=== PATIENT | female | born 1970 | race Caucasian/White ===

== ENCOUNTER 2017-07-07 14:51 | Emergency (ER) | payer OTHER, BC ==
[2017-07-07 15:21] VITALS: BMI 27.2
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
[2017-07-07 16:25] LABS: BASO % 1.4 % (0-2.0); EOS % 6.2 % (0-4.5); HEMOGLOBIN 13.1 GM/dL (10.7-15.3); LYMPH % 37.5 % (8-40); MCH 26.4 pg (25.7-33.7); MCHC 32.8 g/dl (32.0-36.0); MEAN CELL VOLUME 80.3 fl (80-96); MEAN PLT VOLUME 8.8 fl (7.5-11.1); MONO % 6.3 % (3.8-10.2); NEUT % 48.6 % (42.8-82.8); PLATELET COUNT 394 K/MM3 (134-434); RBC 4.99 M/mm3 (3.60-5.2); RDW 15.7 % (11.6-15.6); WHITE BLOOD COUNT 9.8 K/mm3 (4.0-10.0)
[2017-07-07 17:12] LABS: ALBUMIN 3.8 g/dl (3.4-5.0); ANION GAP 11 (8-16); BLOOD UREA NITROGEN 15 mg/dL (7-18); CALCIUM 9.2 mg/dL (8.5-10.1); CHLORIDE 103 mmol/L (98-107); CO2 27 mmol/L (21-32); GLUCOSE,RANDOM 104 mg/dL (74-106); POTASSIUM 4.2 mmol/L (3.5-5.1); SODIUM 141 mmol/L (136-145)
[2017-07-07 17:15] LABS: ALK PHOS 67 U/L (45-117); BILIRUBIN,TOTAL 0.3 mg/dL (0.2-1.0); CREATININE 0.8 mg/dL (0.55-1.02); SGOT/AST 25 U/L (15-37); SGPT/ALT 32 U/L (12-78); TOT PROT 7.6 g/dl (6.4-8.2)
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
[2017-07-07] MEDS ORDERED: CYCLOBENZAPRINE HCL 10 MG TABLET (FP) ONE (18:45)
[2017-07-07] MEDS ORDERED: CYCLOBENZAPRINE HCL 10 MG TABLET (FP) PO ONE (18:49)
[2017-07-07] MEDS ORDERED: IBUPROFEN 600 MG TABLET (FP) PO ONE ×2 (18:49→20:28)
[2017-07-07] MEDS ORDERED: ACETAMINOPHEN 325 MG TABLET (FP) PO ONE (18:52)
[2017-07-07] MEDS ORDERED: ACETAMINOPHEN 325 MG TABLET (FP) ONE (18:56)
[2017-07-07 18:57] LABS: URINE APPEARANCE CLOUDY; URINE BILIRUBIN NEGATIVE (NEGATIVE); URINE BLOOD NEGATIVE (NEGATIVE); URINE COLOR YELLOW; URINE GLUCOSE (UA) NEGATIVE (NEGATIVE); URINE KETONE NEGATIVE (NEGATIVE); URINE NITRITE NEGATIVE (NEGATIVE); URINE PROTEIN NEGATIVE (NEGATIVE); URINE UROBILINOGEN NEGATIVE mg/dL (0.2-1.0)
[2017-07-07 19:07] LABS: URINE LEUK ESTERASE 2+ (NEGATIVE)
[2017-07-07 19:09] VITALS: BP 134/84; PULSE 68; TEMP 98.3
[2017-07-07 19:09] LABS: EPI CELLS FEW /HPF (FEW); URINE BACTERIA FEW /hpf (NONE SEEN); URINE MUCUS RARE
[2017-07-07] MEDS ORDERED: CEPHALEXIN MONOHYDRATE 500 MG CAPSULE (UD) PO ONE (21:16)
[2017-07-07] MEDS ORDERED: CEPHALEXIN MONOHYDRATE 250 MG CAPSULE (FP) ONE (21:30)
== END 2017-07-07 21:35 | disposition home or self-care (01) ==
LOC: SUPCPDRO 14:51 → JER 14:51
DX: N39.0 Urinary tract infection, site not specified (principal); R50.9 Fever, unspecified; M54.6 Pain in thoracic spine
CPT/HCPCS: 36415; 71046-TC; 72146-TC; 80053; 81003; 81015; 83605; 84703; 85025; 87040; 87804; 99283-25

== ENCOUNTER 2018-04-30 21:02 | Emergency (ER) | payer BC, OTHER ==
--- NOTE | 2018-04-30 21:17 | PDOC ---
History of Present Illness - General History Source: Patient Exam Limitations: No Limitations <La Cook - Last Filed: 04/30/18 21:58> <Celina Montes - Last Filed: 05/01/18 04:46> - General Chief Complaint: Pain, Acute Stated Complaint: CHEST PAIN Time Seen by Provider: 04/30/18 21:07 - History of Present Illness Initial Comments: 04/30/18 21:58 The patient is a 48 year old female, with no significant PMH who presents to the emergency department with left sided chest pressure since this afternoon. Patient states she also felt an irregular heartbeat, associated nausea, and noticed the chest pressure radiating to the left shoulder. Patient took an advil and baby aspirin with minimal relief of this chest pressure. Patient reports a cough last week but denies similar symptoms in the past. Patient denies eating anything unusual today or any heavy lifting. Patient denies sick contact or recent travel. No history of blood clots. No family history of cardiac issues. The patient denies diaphoresis, shortness of breath, headache and dizziness. Denies fever, chills, vomit, diarrhea and constipation. Denies dysuria, frequency, urgency and hematuria. Allergies: NKA Past surgical history: None reported. Social history: No reported alcohol, drug or cigarette use. PCP: Dr. Patrick (La Cook) Past History <La Cook - Last Filed: 04/30/18 21:58> - Past Medical History COPD: No - Immunization History Td Vaccination: No TDAP Vaccination: No Immunization Up to Date: No - Suicide/Smoking/Psychosocial Hx Smoking Status: No Smoking History: Never smoked Have you smoked in the past 12 months: No Number of Cigarettes Smoked Daily: 0 Information on smoking cessation initiated: No Hx Alcohol Use: No Drug/Substance Use Hx: No Substance Use Type: Alcohol <Celina Montes - Last Filed: 05/01/18 04:46> - Past Medical History Allergies/Adverse Reactions: Allergies Allergy/AdvReac Type Severity Reaction Status Date / Time No Known Allergies Allergy Verified 04/30/18 21:07 Home Medications: Ambulatory Orders NK [No Known Home Medication] 04/30/18 Review of Systems - Review of Systems Able to Perform ROS?: Yes <La Cook - Last Filed: 04/30/18 21:58> <Celina Montes - Last Filed: 05/01/18 04:46> - Review of Systems Comments:: 04/30/18 21:53 ADULT ROS GENERAL/CONSTITUTIONAL: No fever or chills. No weakness. HEAD, EYES, EARS, NOSE AND THROAT: No change in vision. No ear pain or discharge. No sore throat. CARDIOVASCULAR: (+)Chest pain. No shortness of breath. RESPIRATORY: No cough, wheezing, or hemoptysis. GASTROINTESTINAL: No nausea, vomiting, diarrhea or constipation. GENITOURINARY: No dysuria, frequency, or change in urination. MUSCULOSKELETAL: No joint or muscle swelling or pain. No neck or back pain. SKIN: No rash NEUROLOGIC: No headache, vertigo, loss of consciousness, or change in strength/ sensation. ENDOCRINE: No increased thirst. No abnormal weight change. HEMATOLOGIC/LYMPHATIC: No anemia, easy bleeding, or history of blood clots. ALLERGIC/IMMUNOLOGIC: No hives or skin allergy. (La Cook) *Physical Exam <La Cook - Last Filed: 04/30/18 21:58> <Celina Montes - Last Filed: 05/01/18 04:46> - Vital Signs Last Vital Signs Temp Pulse Resp BP Pulse Ox 98.5 F 86 17 137/84 100 04/30/18 21:09 04/30/18 21:09 04/30/18 21:09 04/30/18 21:09 04/30/18 21:09 - Physical Exam Comments: 04/30/18 21:52 ADULT EXAM GENERAL: Awake, alert, and fully oriented, in no acute distress HEAD: No signs of trauma EYES: PERRLA, EOMI, sclera anicteric, conjunctiva clear ENT: Auricles normal inspection, hearing grossly normal, nares patent, Moist mucosa. (+) Bilateral, prominent 1+ tonsils without erythema or exudates. NECK: Normal ROM, supple, no lymphadenopathy, JVD, or masses LUNGS: Breath sounds equal, clear to auscultation bilaterally. No wheezes, and no crackles HEART: Regular rate and rhythm, normal S1 and S2, no murmurs, rubs or gallops. ( +) Left anterior chest wall tenderness to palpation without crepitus. (+) 4th and 5th rib tenderness just lateral to the sternum. ABDOMEN: Soft, nontender, normoactive bowel sounds. No guarding, no rebound. No masses EXTREMITIES: Normal range of motion, no edema. No clubbing or cyanosis. No cords, erythema, or tenderness NEUROLOGICAL: Cranial nerves II through XII grossly intact. Normal speech, normal gait SKIN: Warm, Dry, normal turgor, no rashes or lesions noted. (La Cook) Heart Score/ECG Review <La Cook - Last Filed: 04/30/18 21:58> - History History: Slightly suspicious - Electrocardiogram EKG: Normal - Age Age: 45-65 - Risk Factors Based on the list above the patient has:: No risk factors known - Troponin Troponin: </= normal limit - Score Heart Score - Total: 1 - ECG Intrepretation Rhythm: PVC(s) <Celina Montes - Last Filed: 05/01/18 04:46> - ECG Intrepretation Comment:: occasional unifocal PVCs on monitor (Celina Montes) ED Treatment Course - LABORATORY CBC & Chemistry Diagram: 04/30/18 21:25 04/30/18 21:25 <La Cook - Last Filed: 04/30/18 21:58> - LABORATORY CBC & Chemistry Diagram: 04/30/18 21:25 04/30/18 21:25 <Celina Montes - Last Filed: 05/01/18 04:46> - ADDITIONAL ORDERS Additional order review: Laboratory Results 04/30/18 04/30/18 21:25 21:25 Sodium 138 Potassium 3.3 L Chloride 106 Carbon Dioxide 27 Anion Gap 5 L BUN 9 Creatinine 0.9 Creat Clearance w eGFR > 60 Random Glucose 132 H D Calcium 9.1 Total Bilirubin 0.4 AST 23 D ALT 19 Alkaline Phosphatase 55 Creatine Kinase 126 Troponin I < 0.03 Total Protein 7.0 Albumin 3.9 04/30/18 21:25 RBC 4.58 MCV 84.8 MCHC 33.1 RDW 13.7 D MPV 8.7 Neutrophils % 48.1 Lymphocytes % 35.9 Monocytes % 8.0 Eosinophils % 7.5 H Basophils % 0.5 - RADIOLOGY Radiology Studies Ordered: Category Date Time Status CHEST PA & LAT [RAD] Stat Radiology 04/30/18 22:11 Taken - Medications Given in the ED: ED Medications Discontinued Medications Generic Name Dose Route Start Last Admin Trade Name William PRN Reason Stop Dose Admin Potassium Chloride 40 meq 04/30/18 23:14 04/30/18 23:22 K-Dur - PO 04/30/18 23:15 40 meq ONCE ONE Administration Medical Decision Making <La Cook - Last Filed: 04/30/18 21:58> <Celina Montes - Last Filed: 05/01/18 04:46> - Medical Decision Making Documentation has been prepared under my direction and personally reviewed by me in its entirety. I attest that this documented accurately reflects all work, treatment, procedures and medical decision making performed by me. As noted above, this 48-year-old woman, with no cardiac risk factors presents with left anterior chest pressure for the last several hours. Onset was when patient was watching sports that her son was engaged in. Patient denies associated shortness of breath or other symptoms other than mild nausea. Of note, area of pressure is tender to palpation. Patient denies overuse or trauma to the area. Exam as noted. Although not seen on 12-lead electrocardiogram, patient has occasional unifocal PVCs on monitor. Patient states that she feels these abnormal beats every "3-4 minutes". She states that she normally does not have the sensation of extra beats. CBC/chemistry profile/cardiac enzymes sent for analysis. Chest x-ray (PA and lateral) performed. Chest x-ray preliminary interpretation by Imaging telephone clerk: Bilateral platelike atelectasis at bases but otherwise no infiltrates or effusion. Cardiac silhouette is normal. Laboratory values notable for potassium level of 3.3; otherwise, no significant abnormalities except for random glucose of 132. Troponin is less than 0.3. Patient will be discharged with diagnosis of atypical chest pain; she should return to emergency room immediately if she has any worsening of pain or shortness of breath/diaphoresis/prolonged nausea. She states that she will follow up with her PMD, Dr. Patrick, within the next few days. (Celina Montes) *DC/Admit/Observation/Transfer <La Cook - Last Filed: 04/30/18 21:58> <Celina Montes - Last Filed: 05/01/18 04:46> Diagnosis at time of Disposition: Atypical chest pain - Discharge Dispostion Disposition: HOME Condition at time of disposition: Stable - Referrals Referrals: Frederick Patrick MD [Primary Care Provider] - 3 days - Patient Instructions Printed Discharge Instructions: DI for Atypical Chest Pain Additional Instructions: Rest; avoid strenuous activity for the next several days Ibuprofen/naproxen/acetaminophen as needed for pain Eat potassium rich diet as discussed Return to ER if you havr severe pain/shortness of breath/cough or fever Follow-up with Dr Patrick within the next 3-4 days - Post Discharge Activity
[2018-04-30 21:19] VITALS: BP 137/84; PULSE 86; TEMP 98.5; BMI 27.2
[2018-04-30 21:42] LABS: BASO % 0.5 % (0-2.0); EOS % 7.5 % (0-4.5); HEMATOCRIT 38.8 % (32.4-45.2); HEMOGLOBIN 12.9 GM/dl (10.7-15.3); LYMPH % 35.9 % (8-40); MCH 28.1 pg (25.7-33.7); MCHC 33.1 g/dl (32.0-36.0); MEAN CELL VOLUME 84.8 fl (80-96); MEAN PLT VOLUME 8.7 fl (7.5-11.1); NEUT % 48.1 % (42.8-82.8); PLATELET COUNT 324 K/MM3 (134-434); RBC 4.58 M/mm3 (3.60-5.2); RDW 13.7 % (11.6-15.6); WHITE BLOOD COUNT 9.1 K/mm3 (4.0-10.8)
[2018-04-30 22:10] LABS: ALBUMIN 3.9 g/dl (3.5-5.0); ALK PHOS 55 U/L (32-92); ANION GAP 5 MMOL/L (8-16); BILIRUBIN,TOTAL 0.4 mg/dl (0.2-1.0); BLOOD UREA NITROGEN 9 mg/dl (7-18); CALCIUM 9.1 mg/dl (8.4-10.2); CHLORIDE 106 mmol/L (98-107); CO2 27 mmol/L (22-28); CREATININE 0.9 mg/dl (0.6-1.3); GLUCOSE,RANDOM 132 mg/dl (74-106); POTASSIUM 3.3 mmol/L (3.5-5.1); SGOT/AST 23 U/L (10-42); SGPT/ALT 19 U/L (10-40); SODIUM 138 mmol/L (136-145)
[2018-04-30] MEDS ORDERED: POTASSIUM CHLORIDE TABS 20 MEQ TABLET.ER (FP) PO ONE ×2 (23:14→23:19)
--- NOTE | 2018-05-01 12:40 | EKG ---
Test Reason : Blood Pressure : / mmHG Vent. Rate : 085 BPM Atrial Rate : 085 BPM P-R Int : 144 ms QRS Dur : 092 ms QT Int : 404 ms P-R-T Axes : 064 046 057 degrees QTc Int : 480 ms NORMAL SINUS RHYTHM NONSPECIFIC ST AND T WAVE ABNORMALITY ABNORMAL ECG NO PREVIOUS ECGS AVAILABLE Confirmed by Alejandro Stephenson ([id number]) on 05/01/2018 12:39:57 PM Referred By: NASEEM Confirmed By:Alejandro Stephenson
== END 2018-04-30 23:27 | disposition home or self-care (01) ==
LOC: FER 21:02
DX: R07.89 Other chest pain (principal)
CPT/HCPCS: 36415; 71046-TC-FY; 80053; 82550; 84484; 85025; 87070; 93005; 99281-25

== ENCOUNTER 2018-08-22 09:09 | Inpatient (IN) | payer BC ==
--- NOTE | 2018-08-22 09:37 | PDOC ---
History of Present Illness - General Chief Complaint: Pain Stated Complaint: ABD PAIN Time Seen by Provider: 08/22/18 09:37 - History of Present Illness Initial Comments: 08/22/18 09:46 Ms. Solares is a 48 yo female w/ no significant pmh who presents for evaluation of several day history of RUQ abdominal pain. Patient reports she had similar symptoms approximately 1 week ago which included diarrhea and fever however had improved; presents today as pain returned. Patient reports she has only had coffee this morning for breakfast. Last BM was this morning and normal. The patient denies chest pain, shortness of breath, headache and dizziness. Denies chills, nausea, vomit, and constipation. Denies dysuria, frequency, urgency and hematuria. Past History - Past Medical History Allergies/Adverse Reactions: Allergies Allergy/AdvReac Type Severity Reaction Status Date / Time No Known Allergies Allergy Verified 04/30/18 21:07 Home Medications: Ambulatory Orders NK [No Known Home Medication] 04/30/18 COPD: No - Immunization History Td Vaccination: No TDAP Vaccination: No Immunization Up to Date: No - Suicide/Smoking/Psychosocial Hx Smoking Status: No Smoking History: Never smoked Have you smoked in the past 12 months: No Number of Cigarettes Smoked Daily: 0 Information on smoking cessation initiated: No Hx Alcohol Use: No Drug/Substance Use Hx: No Substance Use Type: Alcohol Review of Systems - Review of Systems Comments:: 08/22/18 11:17 GENERAL/CONSTITUTIONAL: +Fever as described. No chills. No weakness. HEAD, EYES, EARS, NOSE AND THROAT: No change in vision. No ear pain or discharge. No sore throat. CARDIOVASCULAR: No chest pain or shortness of breath RESPIRATORY: No cough, wheezing, or hemoptysis. GASTROINTESTINAL: +Diarrhea (now resolved). RUQ abdominal pain as described. No nausea, vomiting, or constipation. GENITOURINARY: No dysuria, frequency, or change in urination. MUSCULOSKELETAL: No joint or muscle swelling or pain. No neck or back pain. SKIN: No rash NEUROLOGIC: No headache, vertigo, loss of consciousness, or change in strength/ sensation. ENDOCRINE: No increased thirst. No abnormal weight change HEMATOLOGIC/LYMPHATIC: No anemia, easy bleeding, or history of blood clots. ALLERGIC/IMMUNOLOGIC: No hives or skin allergy. *Physical Exam - Vital Signs Last Vital Signs Temp Pulse Resp BP Pulse Ox 98.3 F 86 18 132/78 98 08/22/18 09:17 08/22/18 09:17 08/22/18 09:17 08/22/18 09:17 08/22/18 09:17 - Physical Exam Comments: 08/22/18 11:18 GENERAL: Awake, alert, and fully oriented, in no acute distress HEAD: No signs of trauma, normocephalic, atraumatic EYES: PERRLA, EOMI, sclera anicteric, conjunctiva clear ENT: Auricles normal inspection, hearing grossly normal, nares patent, oropharynx clear without exudates. Moist mucosa NECK: Normal ROM, supple, no lymphadenopathy, JVD, or masses LUNGS: No distress, speaks full sentences, clear to auscultation bilaterally HEART: Regular rate and rhythm, normal S1 and S2, no murmurs, rubs or gallops, peripheral pulses normal and equal bilaterally. ABDOMEN: +RUQ TTP. Otherwise soft, nontender, normoactive bowel sounds. No guarding, no rebound. No masses EXTREMITIES: Normal inspection, Normal range of motion, no edema. No clubbing or cyanosis. NEUROLOGICAL: Cranial nerves II through XII grossly intact. Normal speech, normal gait, no focal sensorimotor deficits SKIN: Warm, Dry, normal turgor, no rashes or lesions noted. Moderate Sedation - Procedure Monitoring Vital Signs: Procedure Monitoring Vital Signs Temperature 98.3 F 08/22/18 09:17 Pulse Rate 86 08/22/18 09:17 Respiratory Rate 18 08/22/18 09:17 Blood Pressure 132/78 08/22/18 09:17 O2 Sat by Pulse Oximetry (%) 98 08/22/18 09:17 ED Treatment Course - LABORATORY CBC & Chemistry Diagram: 08/22/18 10:20 08/22/18 10:20 Medical Decision Making - Medical Decision Making 08/22/18 11:18 Ms. Solares is a 48 yo female w/ pmh as described who presents for evaluation of symptoms concerning for gastritis vs. cholecystitis. Patient evaluated with labs and bedside US and found to have signs concerning for cholecystitis with thickened GB wall as well as mary-cholecystic fluid and stones appreciated. Labs sent as below. Rocephin and flagyl started for antibiosis. Surgery paged for evaluation. 08/22/18 12:[address] Rosales who recommended adding cefoxitin 2g; given patient's previous ceftriaxone administration decision made by ER attending to defer at this time. Surgery will evaluate for further care. Patient's PCP paged for admission. *DC/Admit/Observation/Transfer Diagnosis at time of Disposition: Cholecystitis - Discharge Dispostion Decision to Admit order: Yes - Referrals - Patient Instructions - Post Discharge Activity
[2018-08-22] MEDS ORDERED: morphine CARPU-JECT 4 MG/1 ML DISP.SYRIN IVPUSH ONE (09:49)
[2018-08-22] MEDS ORDERED: ONDANSETRON 4 MG/2 ML VIAL IVPUSH ONE (09:50)
[2018-08-22] MEDS ORDERED: SODIUM CHLORIDE 1,000 ML IV STA (09:50)
[2018-08-22] MEDS ORDERED: ONDANSETRON 4 MG/2 ML VIAL ONE (10:01)
[2018-08-22] MEDS ORDERED: morphine SULFATE 4 MG/ML VIAL ONE (10:01)
--- NOTE | 2018-08-22 10:24 | PDOC ---
Attending Attestation - Resident Resident Name: Riky Rosales - ED Attending Attestation I have performed the following: I have examined & evaluated the patient, The case was reviewed & discussed with the resident, I agree w/resident's findings & plan - HPI HPI: 08/22/18 10:44 Ms. Solares is a 48 yo female w/ no significant pmh who presents for evaluation of RUQ AP x 1 day, beginning and worsening since yesterday.. Patient reports she had similar symptoms of AP, n/v/d, fever approximately 1 week ago when she traveled to [facility]. Patient reports she has only had coffee this morning for breakfast. Last BM was this morning and normal. - Physicial Exam PE: 08/22/18 10:43 NAD, well appearing, PERRL, EOMI, MMM, nl conjunctiva, anicteric; neck supple. lungs clear, RRR, abdomen soft +Tovar's sign, +RUQ tenderness. GRIFFIN x4, no focal neuro deficits. No peripheral edema. normal color for ethnicity, WWP. - Medical Decision Making 08/22/18 10:39 See HPI for details Vital signs reviewed, wnl. no fever. Prior notes reviewed, including admissions, discharges and consultations. laboratory results and imaging reviewed, basic labs and lytes wnl, notable for mild leukocytosis of 12.6K - consistent with early infection/inflammation of biliary etiology, normal LFTs/lipase. normal lytes and chem panel. ED course: bedside sono for biliary exam with +cholelithiasis with acute cholecystitis IVF, ceftriaxone/flagyl appropriate as coverage of gram negs and positives and early abdominal infection, analgesia. NPO. official RUQ sono ordered and pending. - confirmed findings of POCUS biliary exam at bedside supervised by me. surgery cs with Tylor gross, to be seen by Dr Rosales Admit for surgical management. admit to Dr Patrick service. 08/22/18 13:52 Procedures - Bedside Ultrasound Bedside Ultrasound: Gallbladder Remarks: 08/22/18 10:40 POCUS biliary exam: Indication: abdominal pain Views: gallbladder long and s hort axis, CBD Findings: large stone at GB neck with +sonographic Tovar's, +GB wall thickening 5-6mm, +small pericholecystic fluid. normal CBD <3mm for age. Impression: +Cholelithiasis with acute cholecystitis.
[2018-08-22] MEDS ORDERED: CEFTRIAXONE 1,000 MG in DEXTROSE 5%-WATER - 50 ML IVPB ONE (10:38)
[2018-08-22 10:41] LABS: BASO % 0.9 % (0-2.0); EOS % 3.1 % (0-4.5); HEMATOCRIT 38.2 % (32.4-45.2); LYMPH % 25.2 % (8-40); MCH 28.2 pg (25.7-33.7); MCHC 33.9 g/dl (32.0-36.0); MEAN CELL VOLUME 83.2 fl (80-96); MEAN PLT VOLUME 8.3 fl (7.5-11.1); MONO % 9.5 % (3.8-10.2); NEUT % 61.3 % (42.8-82.8); PLATELET COUNT 382 K/MM3 (134-434); RBC 4.59 M/mm3 (3.60-5.2); RDW 13.9 % (11.6-15.6); WHITE BLOOD COUNT 12.6 K/mm3 (4.0-10.0)
[2018-08-22 11:19] LABS: ALBUMIN 3.8 g/dl (3.4-5.0); ALK PHOS 73 U/L (45-117); ANION GAP 7 MMOL/L (8-16); BILIRUBIN,TOTAL 0.4 mg/dL (0.2-1); BLOOD UREA NITROGEN 11 mg/dL (7-18); CALCIUM 9.3 mg/dL (8.5-10.1); CHLORIDE 108 mmol/L (98-107); CO2 24 mmol/L (21-32); CREATININE 0.8 mg/dL (0.55-1.3); GLUCOSE,RANDOM 92 mg/dL (74-106); POTASSIUM 4.1 mmol/L (3.5-5.1); SGOT/AST 11 U/L (15-37); SGPT/ALT 30 U/L (13-61); SODIUM 139 mmol/L (136-145); TOT PROT 7.3 g/dl (6.4-8.2)
--- NOTE | 2018-08-22 11:19 | EKG ---
Test Reason : Blood Pressure : / mmHG Vent. Rate : 072 BPM Atrial Rate : 072 BPM P-R Int : 146 ms QRS Dur : 088 ms QT Int : 404 ms P-R-T Axes : -08 027 019 degrees QTc Int : 442 ms NORMAL SINUS RHYTHM NORMAL ECG WHEN COMPARED WITH ECG OF 30-APR-2018 21:10, T WAVE VARIATION Confirmed by DINORA MARAI MD ([id number]) on 08/22/2018 11:19:46 AM Referred By: Confirmed By:DINORA MARIA MD
[2018-08-22 11:50] LABS: LIPASE 248 U/L (73-393)
[2018-08-22 12:12] LABS: INR 0.99 (0.83-1.09); PROTHROMBIN TIME (PATIENT) 11.7 SEC (9.7-13.0)
[2018-08-22 12:15] LABS: ACTIVATED PTT 31.7 SECONDS (25.2-36.5)
[2018-08-22] MEDS ORDERED: CEFOXITIN SODIUM 2 GM in DEXTROSE 5%-WATER - 100 ML IVPB ONE (12:27)
[2018-08-22] MEDS ORDERED: CEFOXITIN SODIUM IVPB ONE (12:38)
[2018-08-22] MEDS ORDERED: WATER IVPB ONE (12:38)
[2018-08-22] MEDS ORDERED: DEXTROSE 5% IVPB ONE (12:38)
[2018-08-22] MEDS ORDERED: SODIUM CHLORIDE 1,000 ML IV SCH (13:00)
[2018-08-22] MEDS ORDERED: ACETAMINOPHEN INJECTION 100 ML IVPB ONE (14:36)
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
[2018-08-22] MEDS: ACETAMINOPHEN 1000 MG/100 ML VIAL (NON FORMULARY) IVPB PRN (14:41)
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
[2018-08-22] MEDS ORDERED: morphine SULFATE 4 MG/ML VIAL IVPUSH PRN ×2 (14:57→15:05)
[2018-08-22] MEDS ORDERED: ONDANSETRON 4 MG/2 ML VIAL IVPUSH PRN (14:58)
[2018-08-22] MEDS: SODIUM CHLORIDE 1,000 ML IV SCH (15:53)
--- NOTE | 2018-08-22 17:53 | PN ---
Progress Note (short form) - Note Progress Note: ID consult dictated imp/reccd 48 yo female admitted with severe RUQ pain radiating to her back, no fevers no nausea or vomiting this is the first time this has happened +FHX- mother and sister with gallstones US with large stone at neck of GB and thickened GB wall c/w cholycystitis cholycystitis- for surgery in am continue cefoxitin received ceftriaxone and flagyl in ER d/w Dr Rosales further management of antibiotics to be based on operative findings in am Problem List - Problems (1) Calculus of gallbladder with acute cholecystitis without obstruction Code(s): K80.00 - CALCULUS OF GALLBLADDER W ACUTE CHOLECYST W/O OBSTRUCTION
[2018-08-22 18:11] VITALS: BMI 28.1
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
[2018-08-22] MEDS: CEFOXITIN SODIUM/DEXTROSE,ISO 2 GM/50 ML BAG IVPB SCH (21:43)
[2018-08-23] MEDS: SODIUM CHLORIDE 1,000 ML IV SCH (02:00)
[2018-08-23] MEDS ORDERED: PT OWN MED DRAWER 7, Y5N ONE ×2 (05:20→22:04)
[2018-08-23] MEDS: ACETAMINOPHEN 1000 MG/100 ML VIAL (NON FORMULARY) IVPB PRN ×2 (05:22→12:30)
[2018-08-23] MEDS: CEFOXITIN SODIUM/DEXTROSE,ISO 2 GM/50 ML BAG IVPB SCH ×3 (06:37→22:07)
[2018-08-23 08:03] LABS: HEMATOCRIT 37.1 % (32.4-45.2); HEMOGLOBIN 12.6 GM/dL (10.7-15.3); MCH 28.4 pg (25.7-33.7); MCHC 34.1 g/dl (32.0-36.0); MEAN CELL VOLUME 83.3 fl (80-96); MEAN PLT VOLUME 8.5 fl (7.5-11.1); PLATELET COUNT 389 K/MM3 (134-434); RBC 4.45 M/mm3 (3.60-5.2); RDW 13.7 % (11.6-15.6); WHITE BLOOD COUNT 7.5 K/mm3 (4.0-10.0)
[2018-08-23 08:14] LABS: INR 1.05 (0.83-1.09); PROTHROMBIN TIME (PATIENT) 12.4 SEC (9.7-13.0)
[2018-08-23 08:43] LABS: ALBUMIN 3.5 g/dl (3.4-5.0); ALK PHOS 192 U/L (45-117); ANION GAP 5 MMOL/L (8-16); BILIRUBIN,TOTAL 0.8 mg/dL (0.2-1); BLOOD UREA NITROGEN 7 mg/dL (7-18); CALCIUM 8.4 mg/dL (8.5-10.1); CHLORIDE 106 mmol/L (98-107); CO2 27 mmol/L (21-32); CREATININE 0.8 mg/dL (0.55-1.3); GLUCOSE,RANDOM 92 mg/dL (74-106); LIPASE 167 U/L (73-393); MAGNESIUM 2.1 mg/dL (1.8-2.4); PHOSPHOROUS 3.4 mg/dL (2.5-4.9); POTASSIUM 4.4 mmol/L (3.5-5.1); SGOT/AST 461 U/L (15-37); SGPT/ALT 566 U/L (13-61); SODIUM 138 mmol/L (136-145); TOT PROT 7.1 g/dl (6.4-8.2)
[2018-08-23] MEDS ORDERED: MIDAZOLAM HCL 2 MG/2 ML SINGLE DOSE VIAL ONE ×2 (09:48)
[2018-08-23] MEDS ORDERED: PROPOFOL 20 ML ONE (09:49)
[2018-08-23] MEDS ORDERED: fentaNYL CITRATE 250 MCG/5 ML VIAL ONE (09:49)
[2018-08-23] MEDS ORDERED: ROCURONIUM BROMIDE 50 MG/5 ML VIAL ONE (09:49)
[2018-08-23] MEDS ORDERED: ONDANSETRON 4 MG/2 ML VIAL IVPUSH PRN ×2 (09:59→12:41)
[2018-08-23] MEDS ORDERED: LACTATED RINGERS SOLUTION 1,000 ML IV SCH ×3 (10:00→12:41)
[2018-08-23] MEDS ORDERED: BUPIVACAINE HCL/PF 0.5% (5MG/ML) 10 ML VIAL ONE (10:04)
[2018-08-23] MEDS ORDERED: BUPIVACAINE HCL/PF 0.5% (5MG/ML) 10 ML VIAL IJ ONE (11:43)
[2018-08-23] MEDS ORDERED: NEOSTIGMINE METHYLSULFATE 0.5 MG/ML - 10 ML MDV ONE ×2 (11:52)
[2018-08-23] MEDS ORDERED: ACETAMINOPHEN INJECTION 100 ML IVPB ONE (12:25)
[2018-08-23] MEDS ORDERED: ACETAMINOPHEN 1000 MG/100 ML VIAL (NON FORMULARY) IVPB ONE ×2 (12:25→12:41)
--- NOTE | 2018-08-23 12:25 | OP ---
Operative Note - Note: Operative Date: 08/23/18 Pre-Operative Diagnosis: acute cholecystitis w/impacted stone, umbilical hernia Operation: laparoscopic cholecystectomy with primary umbilical hernia repair Findings: <1cm umbilical defect with preperitoneal fat only (closed at end of procedure); tense, distended, edematous gallbladder, decompressed of 60ml hydrops, large stone in infundibulum; mildly dilated cystic duct and artery identified, Weck clips used Post-Operative Diagnosis: Same as Pre-op Surgeon: Constantin Rosales Speedometer Mechanic: Sina Chao (with Karsten Argueta, MS3) Anesthesiologist/ASSOCIATE LOAN OFFICER: Felicity Rdz MD Anesthesia: General, Local (20ml 0.5% marcaine) Specimens Removed: gallbladder to pathology Estimated Blood Loss (mls): 10 Fluid Volume Replaced (mls): 1,000 (crystalloid) Operative Report Dictated: Yes
[2018-08-23] MEDS ORDERED: CEFOXITIN SODIUM 2 GM in DEXTROSE 5%-WATER 100 ML IVPB SCH (14:00)
[2018-08-23] MEDS ORDERED: IBUPROFEN 600 MG TABLET (FP) PO SCH (15:00)
[2018-08-23] MEDS: IBUPROFEN 600 MG TABLET (FP) PO SCH ×2 (15:49→22:06)
--- NOTE | 2018-08-23 16:49 | PN ---
Progress Note, Physician Chief Complaint: Acute Cholecystitis S/P cholecystectomy History of Present Illness: Previous notes and events reviewed awake and alert NAD states pain is controlled s/p lap cholecystectomy POC #0 - Current Medication List Current Medications: Active Medications Acetaminophen (Tylenol -) 650 mg PO Q6H [facility] Lactated Ringer's (Lactated Ringers Solution) 1,000 mls @ 100 mls/hr IV ASDIR SEAN Cefoxitin Sodium (Mefoxin Premix (Restricted To Id)) 2 gm in 50 mls @ 100 mls/ hr IVPB Q8H SEAN; Protocol Last Admin: 08/23/18 14:40 Dose: Not Given Ibuprofen (Motrin -) 600 mg PO Q6H SEAN Last Admin: 08/23/18 15:49 Dose: 600 mg Ondansetron HCl (Zofran Injection) 4 mg IVPUSH Q6H PRN PRN Reason: NAUSEA AND/OR VOMITING - Objective Vital Signs: Vital Signs Temperature 99.1 F 08/23/18 13:49 Pulse Rate 63 08/23/18 13:49 Respiratory Rate 18 08/23/18 13:49 Blood Pressure 117/71 08/23/18 13:49 O2 Sat by Pulse Oximetry (%) 98 08/23/18 13:49 Constitutional: Yes: No Distress, Calm Eyes: Yes: Conjunctiva Clear HENT: Yes: Atraumatic Cardiovascular: Yes: Regular Rate and Rhythm Respiratory: Yes: Regular, CTA Bilaterally Gastrointestinal: Yes: Normal Bowel Sounds, Soft, Tenderness (epigastric, RUQ) Musculoskeletal: Yes: WNL Extremities: Yes: WNL Edema: No Neurological: Yes: Alert, Oriented Psychiatric: Yes: Alert, Oriented Labs: CBC, BMP 08/23/18 07:00 08/23/18 07:00 INR, PTT INR 1.05 (0.83-1.09) 08/23/18 07:00 Problem List - Problems (1) Cholecystitis Assessment/Plan: -ID and surgery on board -s/o lap cholecystectomy POD #0 -pain management -dressing dry and intact -incentive spirometer QID -IV ABT Code(s): K81.9 - CHOLECYSTITIS, UNSPECIFIED Assessment/Plan see problem list dvt ppx
[2018-08-23] MEDS: ACETAMINOPHEN 325 MG TABLET (FP) PO SCH (17:34)
[2018-08-23] MEDS ORDERED: ACETAMINOPHEN 325 MG TABLET (FP) PO SCH (18:00)
[2018-08-24] MEDS: ACETAMINOPHEN 325 MG TABLET (FP) PO SCH ×2 (00:09→06:05)
[2018-08-24] MEDS: IBUPROFEN 600 MG TABLET (FP) PO SCH ×2 (02:59→10:02)
[2018-08-24 05:39] VITALS: TEMP 98.5
[2018-08-24] MEDS: CEFOXITIN SODIUM/DEXTROSE,ISO 2 GM/50 ML BAG IVPB SCH (06:04)
[2018-08-24 08:12] LABS: HEMOGLOBIN 12.4 GM/dL (10.7-15.3); MCH 27.9 pg (25.7-33.7); MCHC 33.4 g/dl (32.0-36.0); MEAN CELL VOLUME 83.4 fl (80-96); MEAN PLT VOLUME 8.5 fl (7.5-11.1); PLATELET COUNT 379 K/MM3 (134-434); RBC 4.43 M/mm3 (3.60-5.2); RDW 14.2 % (11.6-15.6); WHITE BLOOD COUNT 11.7 K/mm3 (4.0-10.0)
[2018-08-24 08:47] LABS: ALBUMIN 3.3 g/dl (3.4-5.0); ALK PHOS 141 U/L (45-117); ANION GAP 5 MMOL/L (8-16); BILIRUBIN,TOTAL 0.4 mg/dL (0.2-1); BLOOD UREA NITROGEN 7 mg/dL (7-18); CALCIUM 8.5 mg/dL (8.5-10.1); CHLORIDE 107 mmol/L (98-107); CO2 26 mmol/L (21-32); CREATININE 0.9 mg/dL (0.55-1.3); GLUCOSE,RANDOM 96 mg/dL (74-106); POTASSIUM 4.2 mmol/L (3.5-5.1); SGOT/AST 143 U/L (15-37); SGPT/ALT 356 U/L (13-61); SODIUM 138 mmol/L (136-145); TOT PROT 6.6 g/dl (6.4-8.2)
--- NOTE | 2018-08-24 09:21 | PN ---
Progress Note (short form) - Note Progress Note: POD #1 - s/p laparoscopic cholecystectomy under GA. VSS. Pt. doing well, sitting comfortably on bed. Pt. has some swelling to right upper lip most likely secondary to direct laryngoscopy during intubation. Ice was applied and now seems to be better as per pt. Pt. to be discharged later today.
--- NOTE | 2018-08-24 10:31 | PN ---
Progress Note, Physician History of Present Illness: Pt s/p lap chelsie with umbilical hernia repair for acute cholecystitis with impacted stone and hydrops with umbilical hernia present. Ambulating regularly, tolerating diet, voided, pain managed well with alternating Tylenol and ibuprofen. She feels well, mostly incisional pain at umbilicus. Feels ready to go home. - Current Medication List Current Medications: Active Medications Acetaminophen (Tylenol -) 650 mg PO Q6H SEAN Last Admin: 08/24/18 06:05 Dose: 650 mg Cefoxitin Sodium (Mefoxin Premix (Restricted To Id)) 2 gm in 50 mls @ 100 mls/ hr IVPB Q8H SEAN; Protocol Last Admin: 08/24/18 06:04 Dose: 100 mls/hr Ibuprofen (Motrin -) 600 mg PO Q6H SEAN Last Admin: 08/24/18 10:02 Dose: 600 mg Ondansetron HCl (Zofran Injection) 4 mg IVPUSH Q6H PRN PRN Reason: NAUSEA AND/OR VOMITING - Objective Vital Signs: Vital Signs Temperature 98.5 F 08/24/18 05:37 Pulse Rate 73 08/24/18 05:37 Respiratory Rate 20 08/24/18 05:37 Blood Pressure 109/60 08/24/18 05:37 O2 Sat by Pulse Oximetry (%) 98 08/23/18 21:00 Constitutional: Yes: Well Nourished, No Distress, Calm Eyes: Yes: Conjunctiva Clear, EOM Intact. No: Sclera Icterus HENT: Yes: Atraumatic, Normocephalic Gastrointestinal: Yes: Soft, Distention (mild), Tenderness (incisional), Tenderness, Epigastrium (mild) Extremities: No: Cool, Cyanosis Integumentary: Yes: Incision (x4 dressed). No: Jaundice, Rash Wound/Incision: Yes: Steri Strips (under dressings), Dressing Dry and Intact (x4 ). No: Dressing Removed Neurological: Yes: Alert, Oriented. No: Unsteady Gait Labs: CBC, BMP 08/24/18 07:45 08/24/18 07:45 CMP Sodium 138 mmol/L (136-145) 08/24/18 07:45 Potassium 4.2 mmol/L (3.5-5.1) 08/24/18 07:45 Chloride 107 mmol/L (98-107) 08/24/18 07:45 Carbon Dioxide 26 mmol/L (21-32) 08/24/18 07:45 Anion Gap 5 MMOL/L (8-16) L 08/24/18 07:45 BUN 7 mg/dL (7-18) 08/24/18 07:45 Creatinine 0.9 mg/dL (0.55-1.3) 08/24/18 07:45 Creat Clearance w eGFR > 60 (>60) 08/24/18 07:45 Random Glucose 96 mg/dL (74-106) 08/24/18 07:45 Calcium 8.5 mg/dL (8.5-10.1) 08/24/18 07:45 Phosphorus 3.4 mg/dL (2.5-4.9) 08/23/18 07:00 Magnesium 2.1 mg/dL (1.8-2.4) 08/23/18 07:00 Total Bilirubin 0.4 mg/dL (0.2-1) 08/24/18 07:45 AST 143 U/L (15-37) H 08/24/18 07:45 ALT 356 U/L (13-61) H 08/24/18 07:45 Alkaline Phosphatase 141 U/L (45-117) H 08/24/18 07:45 Total Protein 6.6 g/dl (6.4-8.2) 08/24/18 07:45 Albumin 3.3 g/dl (3.4-5.0) L 08/24/18 07:45 Lipase 167 U/L (73-393) 08/23/18 07:00 ALT/AST/alk phos and bili all trending down again wbc up as expected - no concerns no fevers Problem List - Problems (1) Calculus of gallbladder with acute cholecystitis without obstruction Assessment/Plan: POD1 s/p laparoscopic cholecystectomy with umbilical hernia repair doing well ambulating, voiding, eating, pain managed well with nonnarcotics antibiotics completed at 6am ok for d/c home with lifting restrictions x 4 weeks to f/u with me in 2 wks instructions in d/c plan no need for Rx on discharge Code(s): K80.00 - CALCULUS OF GALLBLADDER W ACUTE CHOLECYST W/O OBSTRUCTION (2) RUQ pain Assessment/Plan: resolved Code(s): R10.11 - RIGHT UPPER QUADRANT PAIN (3) Right upper quadrant abdominal tenderness without rebound tenderness Assessment/Plan: minimal Code(s): R10.811 - RIGHT UPPER QUADRANT ABDOMINAL TENDERNESS (4) Umbilical hernia without obstruction or gangrene Assessment/Plan: repaired primarily Code(s): K42.9 - UMBILICAL HERNIA WITHOUT OBSTRUCTION OR GANGRENE
[2018-08-24 10:50] VITALS: BP 137/78; PULSE 81
--- NOTE | 2018-08-24 10:56 | DS ---
Physical Examination Vital Signs: Vital Signs Temperature 98.5 F 08/24/18 05:37 Pulse Rate 81 08/24/18 10:00 Respiratory Rate 20 08/24/18 10:00 Blood Pressure 137/78 08/24/18 10:00 O2 Sat by Pulse Oximetry (%) 98 08/23/18 21:00 Findings/Remarks: Ms. Solares is a 48 yo female w/ no significant pmh who presents for evaluation of several day history of RUQ abdominal pain. Patient reports she had similar symptoms approximately 1 week ago which included diarrhea and fever however had improved; presents today as pain returned. Patient reports she has only had coffee this morning for breakfast. Last BM was this morning and normal.per patient for last one week she has not quite been feeling good she has been tired and weak Operative Date: 08/23/18 Pre-Operative Diagnosis: acute cholecystitis w/impacted stone, umbilical hernia Operation: laparoscopic cholecystectomy with primary umbilical hernia repair Findings: <1cm umbilical defect with preperitoneal fat only (closed at end of procedure); tense, distended, edematous gallbladder, decompressed of 60ml hydrops, large stone in infundibulum; mildly dilated cystic duct and artery identified, Weck clips used Post-Operative Diagnosis: Same as Pre-op Surgeon: Constantin Rosales Women'S Studies Professor: Sina Chao (with Karsten Argueta, MS3) Anesthesiologist/ELIGIBILITY SUPERVISOR: Felicity Rdz MD Anesthesia: General, Local (20ml 0.5% marcaine) Specimens Removed: gallbladder to pathology Estimated Blood Loss (mls): 10 Fluid Volume Replaced (mls): 1,000 (crystalloid) Operative Report Dictated: Yes Constitutional: Yes: Well Nourished, No Distress, Calm Cardiovascular: Yes: Regular Rate and Rhythm Respiratory: Yes: Regular Gastrointestinal: Yes: Normal Bowel Sounds, Soft Musculoskeletal: Yes: WNL Extremities: Yes: WNL Edema: No Peripheral Pulses WNL: Yes Wound/Incision: Yes: Dressing Dry and Intact Neurological: Yes: Alert, Oriented Psychiatric: Yes: Alert, Oriented Labs: CBC, BMP 08/24/18 07:45 08/24/18 07:45 Discharge Summary Reason For Visit: CHOLECYSTITIS Current Active Problems Calculus of gallbladder with acute cholecystitis without obstruction (Acute) Cholecystitis (Acute) Interscapular pain (Acute) RUQ pain (Acute) Right upper quadrant abdominal tenderness without rebound tenderness (Acute) Umbilical hernia without obstruction or gangrene (Acute) Hospital Course: Laboratory Last Values WBC 11.7 K/mm3 (4.0-10.0) H 08/24/18 07:45 RBC 4.43 M/mm3 (3.60-5.2) 08/24/18 07:45 Hgb 12.4 GM/dL (10.7-15.3) 08/24/18 07:45 Hct 37.0 % (32.4-45.2) 08/24/18 07:45 MCV 83.4 fl (80-96) 08/24/18 07:45 MCH 27.9 pg (25.7-33.7) 08/24/18 07:45 MCHC 33.4 g/dl (32.0-36.0) 08/24/18 07:45 RDW 14.2 % (11.6-15.6) 08/24/18 07:45 Plt Count 379 K/MM3 (134-434) 08/24/18 07:45 MPV 8.5 fl (7.5-11.1) 08/24/18 07:45 Absolute Neuts (auto) 7.7 K/mm3 (1.5-8.0) 08/22/18 10:20 Neutrophils % 61.3 % (42.8-82.8) D 08/22/18 10:20 Lymphocytes % 25.2 % (8-40) D 08/22/18 10:20 Monocytes % 9.5 % (3.8-10.2) 08/22/18 10:20 Eosinophils % 3.1 % (0-4.5) 08/22/18 10:20 Basophils % 0.9 % (0-2.0) 08/22/18 10:20 Nucleated RBC % 0 % (0-0) 08/22/18 10:20 PT with INR 12.40 SEC (9.7-13.0) 08/23/18 07:00 INR 1.05 (0.83-1.09) 08/23/18 07:00 PTT (Actin FS) 31.7 SECONDS (25.2-36.5) 08/22/18 10:20 Sodium 138 mmol/L (136-145) 08/24/18 07:45 Potassium 4.2 mmol/L (3.5-5.1) 08/24/18 07:45 Chloride 107 mmol/L (98-107) 08/24/18 07:45 Carbon Dioxide 26 mmol/L (21-32) 08/24/18 07:45 Anion Gap 5 MMOL/L (8-16) L 08/24/18 07:45 BUN 7 mg/dL (7-18) 08/24/18 07:45 Creatinine 0.9 mg/dL (0.55-1.3) 08/24/18 07:45 Creat Clearance w eGFR > 60 (>60) 08/24/18 07:45 Random Glucose 96 mg/dL (74-106) 08/24/18 07:45 Calcium 8.5 mg/dL (8.5-10.1) 08/24/18 07:45 Phosphorus 3.4 mg/dL (2.5-4.9) 08/23/18 07:00 Magnesium 2.1 mg/dL (1.8-2.4) 08/23/18 07:00 Total Bilirubin 0.4 mg/dL (0.2-1) 08/24/18 07:45 AST 143 U/L (15-37) H 08/24/18 07:45 ALT 356 U/L (13-61) H 08/24/18 07:45 Alkaline Phosphatase 141 U/L (45-117) H 08/24/18 07:45 Total Protein 6.6 g/dl (6.4-8.2) 08/24/18 07:45 Albumin 3.3 g/dl (3.4-5.0) L 08/24/18 07:45 Lipase 167 U/L (73-393) 08/23/18 07:00 Urine HCG, Qual Negative 08/22/18 14:36 Blood Type O POSITIVE 08/22/18 10:20 Antibody Screen Negative 08/22/18 10:20 Vital Signs Temp 98.5 F 08/24/18 05:37 Pulse 81 08/24/18 10:00 Resp 20 08/24/18 10:00 BP 137/78 08/24/18 10:00 Pulse Ox 98 08/23/18 21:00 Intake & Output 03/12/19 03/12/19 03/13/19 11:59 23:59 11:59 Intake Total 2649 1970 300 Output Total 10 Balance 2641969 300 Intake: IV 2500 1200 Lactated Ringers Solution 1000 1,000 ml @ 100 mls/hr IV ASDIR SEAN Rx#: [id number] Normal Saline - 1,000 ml 1500 @ 125 mls/hr IV ASDIR SEAN Rx#:[id number] IVPB 150 150 50 Oral 500 250 Oral Supplement 120 Output: Estimated Blood Loss 10 Other: Voiding Method Toilet Toilet Toilet # Unmeasured Voids Void 3 2 Bowel Movement No # Bowel Movements 0 Condition: Good - Instructions Diet, Activity, Other Instructions: Postoperative instructions: You had a laparoscopic cholecystectomy with umbilical hernia repair on 08/23/[address] Constantin Rosales of [facility]. Activity: Resume your usual activities gradually, but no heavy exertion or lifting more than 10-15 pounds for 1 month. Remove dressings 48 hours after surgery; sticky tapes underneath will fall off by themselves. You may shower daily starting then, just pat the incision areas dry. No bath or swimming until skin incisions have healed. Eat lightly at first, but advance to your usual diet as tolerated. Pain: For pain, you may use and alternate Tylenol (acetaminophen) 1-2 pills and/ or ibuprofen 200 mg (1-3 pills) every 6 hours each as needed; this means that you can take one OR the other at 3-hour intervals. If you are prescribed a Tylenol/narcotic combination for severe pain, use it instead of plain Tylenol as needed and switch back when your pain starts decreasing. Do not take more than 4000mg of acetaminophen in a day. Take medications as prescribed or indicated on the labeling. Follow-up: Call Dr. Rosales's office at [phone] to make your postop appointment (approximately 2 weeks after surgery). Clinic may be held in the Diagnostic Center on the first floor of [facility] (Wed) or on the 5th Floor of [facility] ([facility]) in the [facility] (Tue). Call the office if you have: * increasing pain not responsive to pain medication * fever of 101F or higher * vomiting * unusual or increasing bleeding or drainage from wounds * increasing redness or swelling at wound sites Also, see your primary medical doctor within 1-2 weeks. Referrals: Constantin Rosales MD [Staff Physician] - Disposition: HOME - Home Medications Comprehensive Discharge Medication List: Ambulatory Orders Acetaminophen [Tylenol .Regular Strength -] 650 mg PO Q6H tablet 08/24/18 Ibuprofen [Motrin -] 600 mg PO Q6H tablet 08/24/18
--- NOTE | 2018-08-24 16:08 | PATH ---
Surgical Pathology Report Patient Name: CORAZON JACKSON [facility]. Rec. #: [id number] /Age/Gender: 1970 (Age: 48) / F Account: [id number] Location: [address] [place] [address]/[facility] Taken: 08/23/2018 Received: 08/23/2018 Reported: 08/24/2018 Physicians: Tariq Peguero M.D. Specimen(s) Received GALLBLADDER Clinical History Acute cholecystitis with impacted stone Final Diagnosis GALLBLADDER, CHOLECYSTECTOMY: ACUTE AND CHRONIC CHOLECYSTITIS. CHOLELITHIASIS. Electronically Signed Aniceto Felix M.D. Gross Description Received in formalin, labeled "gallbladder," is a 10.0 x 3.8 x 3.6 cm. gallbladder with a 0.2 cm. in length portion of cystic duct attached. The outer surface is parham-pink and varies from smooth to shaggy. The lumen contains red blood as well as a 3.8 cm greatest dimension brown, ovoid cholelith. The mucosa is hyperemic and focally eroded. The wall of the gallbladder measures up to 0.7 cm. in thickness. Surgical Dressing Maker sections are submitted in one cassette. /08/23/2018 saudi08/23/2018
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
== END 2018-08-24 12:45 | disposition home or self-care (01) | DRG 418 ==
LOC: JER 09:09 → JERBED 12:10 → J6S 14:50
PROVIDERS: ADMIT Family Medicine; ATTEND Family Medicine
PROC: 0WQF4ZZ Repair Abdominal Wall, Percutaneous Endoscopic Approach (ICD-10-PCS; 2018-08-23)
PROC: 0FT44ZZ Resection of Gallbladder, Percutaneous Endoscopic Approach (ICD-10-PCS; principal; 2018-08-23 10:00)
DX: K80.00 Calculus of gallbladder with acute cholecystitis without obstruction (principal); K82.1 Hydrops of gallbladder; K42.9 Umbilical hernia without obstruction or gangrene
CPT/HCPCS: 36415; 76705-TC; 80053; 83690; 83735; 84100; 84703; 85025; 85027; 85610; 85730; 86850; 86900; 86901; 88304-TC; 93005; 93010; 94760; 99282-25; J0131; J7030